=== PATIENT | female | born 1980 | race Caucasian/White ===

== ENCOUNTER 2018-02-12 03:52 | Inpatient (IN) ==
[2018-02-12] MEDS ORDERED: OXYTOCIN 20 UNITS in RINGER'S SOLUTION,LACTATED 1,000 ML IV ONE ×2 (05:12→06:30)
[2018-02-12] MEDS ORDERED: RINGER'S SOLUTION,LACTATED 1,000 ML IV PRN ×2 (05:12→06:30)
[2018-02-12] MEDS ORDERED: ceFAZolin SODIUM 3 GM in DEXTROSE 5 % IN WATER 100 ML IV ONE ×2 (06:30)
--- NOTE | 2018-02-12 06:33 | ANES ---
Anesthesia Pre Procedure Eval HOME MEDICATIONS Vits96/Iron Fum/Folic [ S] 1 tab PO DAILY 06/08/16 [Last Taken 06/14/16] Allergies/Adverse Reactions: Allergies Allergy/AdvReac Type Severity Reaction Status Date / Time No Known Allergies Allergy Verified 02/12/18 05:48 - Planned Procedure Planned Procedure: repeat with possible abdominal scar revi Medication List Reviewed:: Yes Allergies Verified: Yes - Family Anesthesia History Family History:: no untoward family reactions to anesthesia - Airway/Neck/Teeth Within Normal Limits:: Yes Teeth Condition: Intact Mallampatti Score: 2 Thyromental (T-M) distance: > 6 cm Mandibulo Hyoid distance: > 3 cm - Respiratory Respiratory: chest non-tender, lungs clear Smoking Status: Never smoker Sleep Apnea currently treated: No Sleep Apnea by current assessment: No - Cardiovascular Patient History - Cardiac/Respiratory: No pertinent hx Tolerates Activity: Good Heart Sounds: S1 & S2, Regular - Anesthesia Assessment and Plan ASA Class: PS, II Anesthesia Type Plan: Block, Spinal Planned difficult intubation/equipment available: No - Bilateral TAP block for post op pain relief
[2018-02-12] MEDS: ceFAZolin SODIUM 3 GM in DEXTROSE 5 % IN WATER 100 ML IV ONE ×4 (06:55→09:21)
[2018-02-12] MEDS ORDERED: ONDANSETRON HCL/PF 2 MG/ML VIAL IV PRN (08:52)
[2018-02-12] MEDS ORDERED: SIMETHICONE 80 MG TAB.CHEW PO PRN (08:52)
[2018-02-12] MEDS ORDERED: BISACODYL 10 MG SUPP.RECT RC PRN (08:52)
[2018-02-12] MEDS ORDERED: SENNOSIDES 8.6 MG TABLET PO PRN (08:52)
--- NOTE | 2018-02-12 08:59 | ANES ---
Anesthesia Procedure Note Procedure Note: ANESTHESIA PROCEDURE NOTE Date of Procedure: 02/12/2018 Time of procedure: 8:40 AM. Performed by: TOBI Clark CRNA, MSN Enamel Shader: Emily Varner RN. Preprocedure diagnosis: Post section pain. Post procedure diagnosis: Same. Procedure: Bilateral TAP block Indications: Post section pain relief. Findings: See below. Details of the procedure: The patient was brought to PACU and placed in the supine position. The patient was prepped with chlorhexidine and using ultrasound guidance the 3 abdominal muscular planes were identified and lidocaine 1% was infiltrated to the skin of the intended injection site. Under ultrasound guidance the the internal oblique and transverse this abdominis muscle layers were approached with visualization of a 4 inch block needle until the tip of the needle rested in the plane between the muscles. 25 mL bupivacaine 0.25% with 1-200,000 epinephrine was injected and the procedure was repeated on the other side. Please see radiology/ultrasound report for details and images of the procedure. EBL: 0 Fluids: N/A. Specimen: N/A. Post procedure condition: The patient tolerated the procedure well. No complications were noted. Thank you for this consultation. Evans Hendrickson CRNA, ARNP, MSN
--- NOTE | 2018-02-12 09:00 | ANES ---
Post Anesthesia Discharge - Transfer of Care Transfer of Care handoff given to nurse: Yes - Discharge from PACU Discharge from PACU when meets criteria: Yes - Anesthesia Post Op Note Anesthesia Post Op Note: Comfortable in PACU. See RAdiology/ultrasound note for TAP block
--- NOTE | 2018-02-12 09:03 | OR ---
Operative Report - Dictated Report Narrative: Indication: 37-year-old G 11 P 5146 at 38 2/7 weeks with prior section 3 presents for repeat section Pre Operative Diagnosis: 38 2/7 week intrauterine , prior section 3, large for gestation age, morbid obesity, grand multiparity Post Operative Diagnosis: Same. Procedure: Repeat low transverse section. Surgeon: Gloria Wang DO Grout Pump Operator: OR staff Anesthesia: Spinal, TAP block Estimated Blood Loss: 150 mL Urine Output: 380 mL clear urine Fluids Replacement: 1000 mL of crystalloid Drains: Jovel to gravity Surgical Complications: None Specimens: Placenta to freezer Findings: Female born in cephalic presentation at 0739 on 02/12/2017 with Apgars 4, 7, and 9, weighing 3387 g. Prolapsed nuchal cord upon hysterotomy. Normal uterus, tubes, ovaries. Extensive omental adhesions to bladder and abdominal wall. Technique: The patient was taken to the operating room and placed in dorsal supine position with a left lateral tilt. After adequate spinal anesthesia, jovel catheter inserted, SCDs placed, and 3 g of Ancef given preoperatively, the abdominal cavity was entered using sharp and blunt dissection. Extra time was needed to remove omental adhesions from the abdominal wall and bladder in order to visualize the abdominal cavity and uterus. A transverse incision was made in the lower uterine segment and extended laterally and upwardly with digital traction. Clear fluid was noted upon amniotomy. Nuchal cord protruded through her incision. The was delivered easily with the aid of a Kiwi Omni pump vacuum. The cord was clamped and cut after approximately 1 minute. The was warmed and dried during this time, then handed off to awaiting peditrician. The placenta was allowed to deliver spontaneously. The uterus was cleared of clot and debris. Uterine incision was closed with 0 Vicryl using a running locked stitch. A second imbricating layer was placed. Excellent hemostasis was noted. The peritoneum was closed with a running 3-0 Monocryl. The same suture was used to approximate the rectus and pyramidalis muscles. The fascia was closed with a running 0 Vicryl. The subcutaneous layer was closed with a running 3-0 Monocryl. The same suture was used to approximate the subdermal layer. The skin was closed with a running 4-0 Monocryl. Benzoin and steri-strips were applied. Sponge, lap, needle, and instrument count were correct x 2. Disposition: To post anesthesia care unit in good condition
--- NOTE | 2018-02-12 09:15 | ANES ---
Post Anesthesia Assessment - Vital Signs Vitals: Last Vital Signs Temp 36.3 C 02/12/18 08:37 Pulse 89 02/12/18 09:00 Resp 21 H 02/12/18 09:00 BP 100/46 02/12/18 09:00 Pulse Ox 96 02/12/18 09:00 Airway Patency: Normal - Mental Status Level Of Consciousness: Awake, Alert - Pain Level Pain Score: 0 - N/V Assessment Nausea/Vomiting Presence: None Dehydration:: No
[2018-02-12] MEDS: IBUPROFEN 800 MG TABLET PO PRN ×3 (09:54→22:14)
[2018-02-12] MEDS: oxyCODONE HCL/ACETAMINOPHEN 1 TAB TABLET PO PRN ×3 (09:55→22:14)
[2018-02-12] MEDS: DOCUSATE SODIUM 100 MG CAPSULE PO SCH ×2 (09:55→21:05)
[2018-02-12] MEDS: ENOXAPARIN SODIUM 40 MG/0.4 ML SYRG SC SCH (17:09)
[2018-02-13] MEDS: oxyCODONE HCL/ACETAMINOPHEN 1 TAB TABLET PO PRN ×4 (01:35→12:25)
[2018-02-13] MEDS: IBUPROFEN 800 MG TABLET PO PRN ×3 (04:52→21:17)
[2018-02-13] MEDS: DOCUSATE SODIUM 100 MG CAPSULE PO SCH ×3 (07:57→21:17)
--- NOTE | 2018-02-13 13:47 | PN ---
Subjective - Date and Time Seen Date: 02/13/18 Time: 13:46 Objective - Vitals Vitals: Last Vital Signs Temp 36.8 C 02/13/18 06:50 Pulse 84 02/13/18 06:50 Resp 18 02/13/18 06:50 BP 118/66 02/13/18 06:50 Pulse Ox 94 02/13/18 06:50 Patient denies complaints. Tolerating regular diet. Ambulating without difficulty. Pain well controlled. Lochia wnl. Abdomen - soft, appropriately tender Incision - clean, dry, intact Uterus - firm, at umbilicus -1 No calf tenderness Impression: Post op day #1 s/p repeat section. Morbid obesity. Advanced maternal age. Late care Plan: Continue routine post-operative/ care Cauti Physician Documentation - Urinary Catheter Management Urethral (West) Date of Insertion: 02/12/18 Time of Insertion: 07:15
[2018-02-13] MEDS: PRENATAL VITS96/IRON FUM/FOLIC 1 TAB TABLET PO SCH (15:35)
[2018-02-13] MEDS: ENOXAPARIN SODIUM 40 MG/0.4 ML SYRG SC SCH (17:58)
[2018-02-14] MEDS: oxyCODONE HCL/ACETAMINOPHEN 1 TAB TABLET PO PRN ×2 (07:44→18:39)
[2018-02-14] MEDS: DOCUSATE SODIUM 100 MG CAPSULE PO SCH (11:14)
[2018-02-14] MEDS: PRENATAL VITS96/IRON FUM/FOLIC 1 TAB TABLET PO SCH (11:14)
[2018-02-14] MEDS: IBUPROFEN 800 MG TABLET PO PRN (14:30)
[2018-02-14 14:42] VITALS: BP 129/78
[2018-02-14] MEDS: ENOXAPARIN SODIUM 40 MG/0.4 ML SYRG SC SCH (17:17)
--- NOTE | 2018-02-14 18:26 | PN ---
Subjective - Date and Time Seen Date: 02/14/18 Time: 18:24 Objective - Vitals Vitals: Last Vital Signs Temp 37.0 C 02/14/18 14:41 Pulse 92 02/14/18 14:41 Resp 16 02/14/18 14:41 BP 129/78 02/14/18 14:41 Pulse Ox 93 02/14/18 14:41 [Patient denies complaints. Ambulating well. Tolerating regular diet. Pain well controlled.] Lochia wnl. Abdomen - soft, appropriately tender Incision - [clean, dry, intact] Uterus - firm, at umbilicus -[2] No calf tenderness Impression: Post op day #2 s/p repeat section. Lower obesity. Late care. Patient desires early discharge. Plan: Continue routine post-operative/ care. Routine discharge home instructions. Follow-up in 1-2 weeks Cauti Physician Documentation - Urinary Catheter Management Urethral (West) Date of Insertion: 02/12/18 Time of Insertion: 07:15
== END 2018-02-14 19:40 | disposition home or self-care (01) | DRG 765 ==
LOC: OB 03:52 → MS 19:14
PROVIDERS: ADMIT Obstetrics & Gynecology; ATTEND Obstetrics & Gynecology
DX: E66.01 Morbid (severe) obesity due to excess calories; O69.0XX0 Labor and delivery complicated by prolapse of cord, not applicable or unspecified; Z68.41 Body mass index [BMI] 40.0-44.9, adult; Z37.0 Single live birth; O99.214 Obesity complicating childbirth; O34.211 Maternal care for low transverse scar from previous cesarean delivery; Z3A.38 38 weeks gestation of pregnancy
CPT/HCPCS: 59025

== ENCOUNTER 2019-04-23 04:39 | Inpatient (IN) ==
[2019-04-23] MEDS ORDERED: ceFAZolin SODIUM 3 GM in DEXTROSE 5 % IN WATER 100 ML IV ONE ×2 (04:41)
[2019-04-23] MEDS ORDERED: OXYTOCIN 20 UNITS in RINGER'S SOLUTION,LACTATED 1,000 ML IV ONE (04:41)
[2019-04-23] MEDS: RINGER'S SOLUTION,LACTATED 1,000 ML IV PRN ×2 (05:05→06:18)
[2019-04-23 05:59] LABS: Cocaine Ur Negative (NEGATIVE); Urine Barbiturate Negative (NEGATIVE); Urine Benzodiazepines Negative (NEGATIVE); Urine Opiates Negative (NEGATIVE); Urine PCP Negative (NEGATIVE); Urine THC Negative (NEGATIVE)
--- NOTE | 2019-04-23 07:11 | ANES ---
Anesthesia Pre Procedure Eval Vitals/Labs: Last Vital Signs Temp 36.8 C 04/23/19 05:53 Pulse 95 04/23/19 05:53 Resp 20 04/23/19 05:53 BP 139/72 04/23/19 05:53 Pulse Ox 94 04/23/19 05:53 HOME MEDICATIONS Vits96/Iron Fum/Folic [ S] 1 tab PO DAILY 06/08/16 [Last Taken 06/14/16] Acetaminophen [Tylenol] 500 mg PO PRN PRN 03/05/19 [Last Taken 03/05/19] Allergies/Adverse Reactions: Allergies Allergy/AdvReac Type Severity Reaction Status Date / Time No Known Allergies Allergy Verified 04/23/19 05:29 - Planned Procedure Planned Procedure: Rpt , poss abdominal scar otis,rt salpin Medication List Reviewed:: Yes Allergies Verified: Yes Medical History (Updated 03/06/19 @ 14:57 by Sara Daley MD) Morbid obesity with BMI of 40.0-44.9, adult (Chronic) with insufficient care (Acute) 30wks Advanced maternal age affecting , antepartum (Acute) Intends to breastfeed (Acute) Ectopic Onset Date: ~03/04/10 History of pre-eclampsia Onset Date: ~2004 Late care Onset Date: ~10/30/17 Missed Onset Date: ~11/30/10 Patient is a currently breast-feeding mother (Resolved) Surgical History (Updated 02/27/19 @ 17:09 by Jonny Wang DO) Previous section (Chronic) x4 Delivery by section of full-term infant 2004, 2013, 2015, [id number] 2004, repeatx3 History of salpingectomy Onset Date: ~03/04/10 left-ectopic S/P dilation and curettage Onset Date: ~11/30/10 missed Status post laparoscopy Onset Date: ~03/04/10 ectopic , lysis of adhesions Status post repeat low transverse section (Resolved) Family History (Updated 02/15/18 @ 16:38 by Ana Cristina Bowen LPN) Aunt Diabetes Grandmother Myocardial infarction - Family Anesthesia History Family History:: no untoward family reactions to anesthesia - Airway/Neck/Teeth Within Normal Limits:: Yes Teeth Condition: intact Neck Exam: full range of motion Mallampatti Score: 2 Thyromental (T-M) distance: > 6 cm Mandibulo Hyoid distance: > 3 cm - Respiratory Respiratory Physical: lungs clear Smoking Status: Never smoker Sleep Apnea currently treated: No Sleep Apnea by current assessment: No - Cardiovascular Tolerate Activity: Good Heart Sounds: S1 & S2, Regular - Anesthesia Assessment and Plan ASA Class: PS, II Anesthesia Type Plan: Spinal - tap block for postop analgesia
[2019-04-23] MEDS ORDERED: SENNOSIDES 8.6 MG TABLET PO PRN (09:28)
[2019-04-23] MEDS ORDERED: IBUPROFEN 800 MG TABLET PO PRN (09:28)
[2019-04-23] MEDS ORDERED: SIMETHICONE 80 MG TAB.CHEW PO PRN (09:28)
[2019-04-23] MEDS ORDERED: ONDANSETRON HCL/PF 2 MG/ML VIAL IV PRN (09:28)
[2019-04-23] MEDS ORDERED: BISACODYL 10 MG SUPP.RECT RC PRN (09:28)
--- NOTE | 2019-04-23 09:40 | ANES ---
Post Anesthesia Assessment - Vital Signs Vitals: Last Vital Signs Temp 36.7 C 04/23/19 09:35 Pulse 96 04/23/19 09:35 Resp 28 H 04/23/19 09:35 BP 130/68 04/23/19 09:35 Pulse Ox 96 04/23/19 09:35 Airway Patency: Normal - Mental Status Level Of Consciousness: Awake - Pain Level Pain Score: 2 - N/V Assessment Nausea/Vomiting Presence: None Dehydration:: No
--- NOTE | 2019-04-23 09:40 | OR ---
Operative Report - Dictated Report Narrative: Indication: 38-year old 12 para 6-1-4-7 at 37 weeks presents for repeat low transverse section with abdominal scar revision and right salpingectomy. This complicated by advanced maternal age, late entry to care, prior section x4, gestational hypertension, morbid obesity, and desires sterilization. Patient's left tube was removed due to an ectopic earlier. status: Planned Pre Operative Diagnosis: 37-week intrauterine . Prior section x4. Gestational hypertension. Morbid obesity. Grand multiparity. Advanced maternal age. Desires sterilization. Post Operative Diagnosis: Same. Procedure: Repeat low transverse section. Abdominal scar revision - 18cm. Right salpingectomy. Surgeon: Gloria Wang DO Insole Rounder: Haja Daley MD Anesthesia: Spinal, TAP block Estimated Blood Loss: 400 mL Urine Output: 250 mL clear urine Fluids Replacement: 1900 mL Drains: Joevl to gravity Surgical Complications: None Specimens: Placenta to pathology Findings: Female in cephalic presentation born at 0813 on [birth year] with Apgars 6, 8, 9, weighing 2691 g. Cord prolapse through hysterotomy. Normal uterus, right tube, ovaries. Absent left tube consistent with patient's surgical history of left salpingectomy due to ectopic . Rectus diathesis. Technique: The patient was taken to the operating room and placed in dorsal supine position with a left lateral tilt. After adequate spinal anesthesia, jovel catheter inserted, SCDs placed, and 3 g of Ancef given preoperatively, the previous scar was excised in an elliptical fashion and the abdominal cavity was entered using sharp and blunt dissection. Two rolled laps were placed in the pericolic gutters on either side of the uterus. A transverse incision was made in the lower uterine segment and extended laterally and upwardly with digital traction. Clear fluid was noted upon amniotomy. Loop of cord prolapse through our hysterotomy. The was delivered easily. The cord was clamped and cut after approximately 30 seconds and was handed off to awaiting freight loading supervisor. The placenta was allowed to deliver spontaneously. The uterus was cleared of clot and debris. Uterine incision was closed with 0 Vicryl using a running stitch. A second imbricating layer was placed. Small bleeding noted in the left corner was controlled with a single [id number] suture. Excellent hemostasis was noted. The rolled laps were removed from the abdominal cavitiy. The peritoneum was closed with a running 3-0 Monocryl. Torn and muscle fibers were approximated gently with 0 Vicryl suture. The fascia was closed with a running 0 Vicryl. The subcutaneous layer was closed with a running 3-0 Monocryl. The same suture was used to approximate the subdermal layer. The skin was closed with a running 4-0 Monocryl and Dermabond. Sponge, lap, needle, and instrument count were correct x 2. Disposition: To post anesthesia care unit in good condition History for MU History for MU Definition: * The number of deliveries resulting in a live the patient experienced prior to current hospitalization * The previous delivery of live twins or any live multiple gestation is considered one live event. *If primagravida or nulliparous is documented select zero for the number of previous live births. Live Events: Live Events: 7
--- NOTE | 2019-04-23 09:40 | ANES ---
Post Anesthesia Discharge - Transfer of Care Transfer of Care handoff given to nurse: Yes - Discharge from PACU Discharge from PACU when meets criteria: Yes
--- NOTE | 2019-04-23 10:29 | ANES ---
Anesthesia Procedure Note Procedure Note: ANESTHESIA PROCEDURE NOTE Date of procedure: 04/23/2019. Time of procedure: 05 02. Performed by: Bhavin Augustin CRNA Electric Knife Operator: Rossy Cifuentes RN . Preprocedure diagnosis: Repeat section. Post procedure diagnosis: Same. Procedure: Ultrasound-guided bilateral tap block Indications: Postoperative analgesia. Findings: Patient placed in the supine position in the PACU. Patient's right abdominal wall was prepped with ChloraPrep. Ultrasound was utilized to identify the fascial layer between the internal oblique and trans-abdominus muscles. A 20-gauge 4 inch regional block needle was advanced under ultrasound guidance until tip of needle was placed just distal to fascial layer. 20 mL of 0.25% Marcaine with epinephrine 1-200,000 was injected with adequate spread of local anesthesia noted. Procedure was then repeated on patient's left side. EBL: Minimal. Fluids: N/A. Specimen: N/A. Post procedure condition: The patient tolerated the procedure well. No complications were noted. Thank you for this consultation Bhavin Augustin CRNA
[2019-04-23] MEDS: oxyCODONE HCL/ACETAMINOPHEN 1 TAB TABLET PO PRN ×2 (11:02→19:15)
[2019-04-23] MEDS: IBUPROFEN 800 MG TABLET PO PRN ×2 (14:26→20:43)
[2019-04-23] MEDS: ENOXAPARIN SODIUM 40 MG/0.4 ML SYRG SC SCH (16:54)
[2019-04-23] MEDS: DOCUSATE SODIUM 100 MG CAPSULE PO SCH (20:33)
[2019-04-24] MEDS: oxyCODONE HCL/ACETAMINOPHEN 1 TAB TABLET PO PRN ×3 (04:45→18:54)
[2019-04-24] MEDS: IBUPROFEN 800 MG TABLET PO PRN ×3 (04:45→18:53)
--- NOTE | 2019-04-24 09:06 | PN ---
Subjective - Date and Time Seen Date: 04/24/19 Time: 09:04 Objective - Vitals Vitals: Last Vital Signs Temp 36.5 C 04/24/19 06:56 Pulse 82 04/24/19 06:56 Resp 18 04/24/19 06:56 BP 130/65 04/24/19 06:56 Pulse Ox 95 04/24/19 06:56 Patient denies complaints. Tolerating regular diet. Ambulating without difficulty. Pain well controlled. Lochia wnl. Abdomen - soft, appropriately tender Incision -clean, dry, intact uterus - firm, at umbilicus -1 no calf tenderness Impression: Post op day #1 s/p repeat section. Abdominal scar revision. Right salpingectomy. Plan: Continue routine post-operative/ care Cauti Physician Documentation - Urinary Catheter Management Urethral (West) Date of Insertion: 04/23/19 Time of Insertion: 07:50
[2019-04-24] MEDS: DOCUSATE SODIUM 100 MG CAPSULE PO SCH ×2 (10:32→21:55)
[2019-04-24] MEDS: PRENATAL VITS96/IRON FUM/FOLIC 1 TAB TABLET PO SCH (10:33)
[2019-04-24] MEDS: ENOXAPARIN SODIUM 40 MG/0.4 ML SYRG SC SCH (17:17)
[2019-04-25] MEDS: IBUPROFEN 800 MG TABLET PO PRN ×4 (02:02→20:47)
[2019-04-25] MEDS: oxyCODONE HCL/ACETAMINOPHEN 1 TAB TABLET PO PRN (02:02)
[2019-04-25] MEDS: PRENATAL VITS96/IRON FUM/FOLIC 1 TAB TABLET PO SCH ×2 (07:58→08:11)
[2019-04-25] MEDS: DOCUSATE SODIUM 100 MG CAPSULE PO SCH ×2 (07:59→20:47)
--- NOTE | 2019-04-25 11:30 | PN ---
Subjective - Date and Time Seen Date: 04/25/19 Time: 11:30 Objective - Vitals Vitals: Last Vital Signs Temp 36.5 C 04/25/19 08:06 Pulse 98 04/25/19 08:06 Resp 16 04/25/19 08:06 BP 133/65 04/25/19 08:06 Pulse Ox 96 04/25/19 08:06 Patient denies complaints. Ambulating well. Tolerating regular diet. Pain well controlled. Lochia wnl. Abdomen - soft, appropriately tender Incision -clean, dry, intact uterus - firm, at umbilicus -2 no calf tenderness Impression: Post op day #2 s/p repeat section. Abdominal scar revision. Right salpingectomy. Plan: Continue routine post-operative/ care Cauti Physician Documentation - Urinary Catheter Management Urethral (West) Date of Insertion: 04/23/19 Time of Insertion: 07:50
[2019-04-25] MEDS: ENOXAPARIN SODIUM 40 MG/0.4 ML SYRG SC SCH (17:11)
[2019-04-26] MEDS: IBUPROFEN 800 MG TABLET PO PRN (05:54)
--- NOTE | 2019-04-26 10:14 | PN ---
Subjective - Date and Time Seen Date: 04/26/19 Time: 10:12 Objective - Vitals Vitals: Last Vital Signs Temp 36.5 C 04/26/19 01:00 Pulse 85 04/26/19 01:00 Resp 18 04/26/19 01:00 BP 130/68 04/26/19 01:00 Pulse Ox 95 04/26/19 01:00 Patient denies complaints. Ambulating without difficulty. Tolerating regular diet. Pain well controlled. Lochia wnl. Abdomen - soft, appropriately tender Incision - [clean, dry, intact] Uterus - firm, at umbilicus -[3] No calf tenderness Impression: Post op day #3 s/p repeat section. Abdominal scar revision. Right salpingectomy. Gestational hypertension-stable. Plan: Routine discharge instructions. Preeclampsia precautions. Cauti Physician Documentation - Urinary Catheter Management Urethral (West) Date of Insertion: 04/23/19 Time of Insertion: 07:50
[2019-04-26] MEDS: DOCUSATE SODIUM 100 MG CAPSULE PO SCH (12:27)
[2019-04-26] MEDS: PRENATAL VITS96/IRON FUM/FOLIC 1 TAB TABLET PO SCH (12:27)
[2019-04-26 12:32] VITALS: BP 130/73
== END 2019-04-26 12:00 | disposition home or self-care (01) | DRG 785 ==
LOC: OB 04:39
PROVIDERS: ADMIT Obstetrics & Gynecology; ATTEND Obstetrics & Gynecology
CPT/HCPCS: 59025; 80307; 88302; 88307